=== PATIENT | female | born 1965 | race Caucasian/White ===

== ENCOUNTER 2017-02-15 16:36 | Emergency (ER) | payer BC, OTHER ==
[~2017-02-15] VITALS: Ht 167.6 cm; Wt 72.6 kg
[2017-02-15 16:36] VITALS: BP 134/83
[~2017-02-15 16:36] MED LIST: /LINE60TA OR; ACET650S OR; VANC; VICODIN 5/500 OR; [UNRECOGNIZED DRUG - OTHER] OR
[2017-02-15] MEDS ORDERED: EFFE75CA75 PO (16:45)
[2017-02-15] MEDS ORDERED: NORCO 5/325MG TABLET (BULK FOR ED) PO ONE (17:15)
[2017-02-15] MEDS ORDERED: KETOROLAC 60 MG/2 ML VIAL (J1885) IM ONE (17:15)
[2017-02-15] MEDS ORDERED: GABAPENTIN 300 MG CAP PO ONE (17:15)
[2017-02-15] MEDS ORDERED: NEUR300C PO (17:51)
[2017-02-15] MEDS ORDERED: OXYC1TAB23 PO (17:51)
== END 2017-02-15 17:57 | disposition home or self-care (01) ==
LOC: M ED 17:38
DX: M50.10 Cervical disc disorder with radiculopathy, unspecified cervical region (principal); F17.210 Nicotine dependence, cigarettes, uncomplicated; Z79.899 Other long term (current) drug therapy; F32.9 Major depressive disorder, single episode, unspecified
CPT/HCPCS: 96372; 99281; J1885

== ENCOUNTER → 2017-08-15 | Outpatient (REF) | payer OTHER ==
[~2017-08-15] MED LIST changes: +EFFE75CA75 PO; +NEUR300C PO; +OXYC1TAB23 PO
[2017-08-18 00:08] LABS: Lyme Disease IgG/IgM Antibodie <0.91 ISR (0.00-0.90); Lyme Disease IgM Ab Quantitati <0.80 index (0.00-0.79)
== END ==
LOC: M LAB REF 16:33
PROVIDERS: ATTEND Nurse Practitioner Family
DX: M79.1 Myalgia (principal)

== ENCOUNTER 2017-11-24 17:47 | Emergency (ER) | payer OTHER ==
[2017-11-24] MEDS: KETOROLAC 30 MG/ML VIAL (J1885) IV (18:48)
[2017-11-24] MEDS: ONDANSETRON 4MG/2ML VIAL (J2405) IV (18:48)
[2017-11-24] MEDS: NS 1,000 ML IV (18:48)
[2017-11-24 18:49] LABS: KETONE, URINE AUTO RFX NEGATIVE (NEGATIVE); LEUKOCYTE ESTERASE UR AUTO RFX NEGATIVE (NEGATIVE); NITRITE, URINE AUTO RFX NEGATIVE (NEGATIVE); RBC, URINE AUTO RFX 2 /HPF (0-3); SPECIFIC GRAVITY UR AUTO RFX 1.019 (1.002-1.035); SQUAM EPITHELIAL CELL UR AURFX 0 /HPF (0-6); WBC, URINE AUTO RFX 1 /HPF (0-3)
[2017-11-24 19:04] LABS: BASO # 0.1 10^3/uL (0.0-0.2); BASO % 1.1 % (0.0-1.0); EOS # 0.2 10^3/uL (0.0-0.50); EOS % 2.8 % (0.0-3.0); HEMATOCRIT 43.1 % (36.0-47.0); HEMOGLOBIN 14.3 g/dl (12.0-16.0); IMMATURE GRANULOCYTE % 0.3 % (0-0); LYMPH # 2.7 10^3/uL (1.5-4.5); LYMPH % 35.5 % (24.0-44.0); MEAN CORPUSCULAR HEMOGLOBIN 30.2 pg (27.0-33.0); MEAN CORPUSCULAR HGB CONC 33.2 g/dl (32.0-36.5); MEAN CORPUSCULAR VOLUME 90.9 fl (80.0-96.0); MONO # 0.5 10^3/uL (0.0-0.8); MONO % 6.1 % (0.0-5.0); NEUTROPHILS # 4.1 10^3/uL (1.8-7.7); NEUTROPHILS % 54.2 % (36.0-66.0); PLATELET COUNT, AUTOMATED 288 10^3/uL (150-450); RED BLOOD COUNT 4.74 10^6/uL (4.00-5.40); RED CELL DISTRIBUTION WIDTH 12.9 % (11.5-14.5); WHITE BLOOD COUNT 7.5 10^3/uL (4.0-10.0)
[2017-11-24] MEDS: MORPHINE 4 MG/ML 1ML SYRINGE IV ×2 (19:13→20:37)
[2017-11-24 19:25] LABS: ALBUMIN 4.2 GM/DL (3.2-5.2); ALBUMIN/GLOBULIN RATIO 1.24 (1.00-1.93); ALKALINE PHOSPHATASE 90 U/L (45-117); ALT/SGPT 20 U/L (12-78); AMYLASE 117 U/L (25-115); ANION GAP 6 MEQ/L (8-16); AST/SGOT 10 U/L (7-37); BILIRUBIN,DIRECT < 0.1 MG/DL (0.0-0.2); BILIRUBIN,TOTAL 0.2 MG/DL (0.2-1.0); BLOOD UREA NITROGEN 24 MG/DL (7-18); CALCIUM LEVEL 8.9 MG/DL (8.5-10.1); CARBON DIOXIDE LEVEL 28 MEQ/L (21-32); CHLORIDE LEVEL 107 MEQ/L (98-107); CREATININE FOR GFR 0.65 MG/DL (0.55-1.02); GLOMERULAR FILTRATION RATE > 60.0 (>51); GLUCOSE, FASTING 93 MG/DL (70-105); LIPASE 181 U/L (73-393); POTASSIUM SERUM 3.9 MEQ/L (3.5-5.1); SODIUM LEVEL 141 MEQ/L (136-145); TOTAL PROTEIN 7.6 GM/DL (6.4-8.2)
[2017-11-24] MEDS ORDERED: ISOVUE-370 76% 100ML VIAL (Q9967) As Ordered (19:32)
[2017-11-24] MEDS: BISACODYL 10 MG SUPP PR (20:53)
[2017-11-24] MEDS: MAGNESIUM CITRATE 300 ML BTL PO (20:53)
== END 2017-11-24 22:19 | disposition home or self-care (01) ==
LOC: M ED 17:47
DX: K59.00 Constipation, unspecified (principal); E27.9 Disorder of adrenal gland, unspecified; F17.200 Nicotine dependence, unspecified, uncomplicated; F32.9 Major depressive disorder, single episode, unspecified; Z79.899 Other long term (current) drug therapy
CPT/HCPCS: J2405

== ENCOUNTER → 2018-10-12 | Outpatient (CLI) | payer OTHER | LOC: M WUC 13:53 | DX: M51.36 Other intervertebral disc degeneration, lumbar region (principal); M25.78 Osteophyte, vertebrae; M41.86 Other forms of scoliosis, lumbar region; M54.31 Sciatica, right side | CPT/HCPCS: 72110 ==

== ENCOUNTER 2018-11-02 16:07 | Emergency (ER) | payer OTHER ==
[~2018-11-02] VITALS: Ht 167.6 cm; Wt 72.7 kg
[~2018-11-02 16:07] MED LIST changes: +COLA100C5 PO; +DULC10SU2 PR; +EFFE75CA2 PO; -EFFE75CA75 PO; +MIRA3350 PO
--- NOTE | 2018-11-02 16:44 | REP ---
Clinical: Acute chest pain . Comparison: 06/20/2016 . Findings: The mediastinum and cardiac silhouette are stable and within normal limits for portable technique. The lung fabian are clear without acute consolidation, effusion, or pneumothorax. Skeletal structures are intact. Impression: No acute cardiopulmonary process appreciated. Electronically Signed by Kraig Young MD 11/02/2018 04:36 P
[2018-11-02] MEDS ORDERED: ONDANSETRON 4MG/2ML VIAL (J2405) IV ONE (16:45)
[2018-11-02] MEDS ORDERED: MORPHINE 2 MG/ML 1ML SYRINGE (J2270) IV PRN (16:45)
[2018-11-02] MEDS ORDERED: ASPIRIN 81 MG CHEW TABLET PO ONE (16:45)
[2018-11-02 16:54] LABS: BASO # 0.1 10^3/uL (0.0-0.2); BASO % 0.8 % (0.0-1.0); EOS # 0.2 10^3/uL (0.0-0.50); EOS % 2.2 % (0.0-3.0); HEMATOCRIT 43.5 % (36.0-47.0); HEMOGLOBIN 14.4 g/dl (12.0-15.5); LYMPH # 2.3 10^3/uL (1.5-4.5); LYMPH % 30.3 % (24.0-44.0); MEAN CORPUSCULAR HEMOGLOBIN 30.8 pg (27.0-33.0); MEAN CORPUSCULAR HGB CONC 33.1 g/dl (32.0-36.5); MEAN CORPUSCULAR VOLUME 92.9 fl (80.0-96.0); MONO # 0.4 10^3/uL (0.0-0.8); MONO % 5.1 % (0.0-5.0); NEUTROPHILS # 4.7 10^3/uL (1.8-7.7); NEUTROPHILS % 61.3 % (36.0-66.0); PLATELET COUNT, AUTOMATED 252 10^3/uL (150-450); RED BLOOD COUNT 4.68 10^6/uL (4.00-5.40); WHITE BLOOD COUNT 7.6 10^3/uL (4.0-10.0)
[2018-11-02 17:06] LABS: INR 0.91; PROTHROMBIN TIME 12.4 SECONDS (12.1-14.4)
[2018-11-02 17:07] LABS: PARTIAL THROMBOPLASTIN TIME 25.9 SECONDS (25.4-37.6)
[2018-11-02 17:32] LABS: ALT/SGPT 22 U/L (12-78); BILIRUBIN,DIRECT 0.2 MG/DL (0.0-0.2); BILIRUBIN,TOTAL 0.4 MG/DL (0.2-1.0); BLOOD UREA NITROGEN 13 MG/DL (7-18); CALCIUM LEVEL 9.2 MG/DL (8.5-10.1); CARBON DIOXIDE LEVEL 27 MEQ/L (21-32); CHLORIDE LEVEL 106 MEQ/L (98-107); CK-MB VALUE MASS < 1.0 NG/ML (<3.6); CPK CREATINE PHOSPHOKINASE 38 U/L (26-192); FREE T4 1.26 NG/DL (0.76-1.46); GLOMERULAR FILTRATION RATE > 60.0 (>51); GLUCOSE, FASTING 96 MG/DL (70-100); LIPASE 122 U/L (73-393); MB/CK RELATIVE INDEX 2.63 (< OR =4); POTASSIUM SERUM 4.1 MEQ/L (3.5-5.1); SODIUM LEVEL 142 MEQ/L (136-145); TOTAL PROTEIN 7.2 GM/DL (6.4-8.2); TROPONIN I < 0.02 NG/ML (< 0.10)
[2018-11-02] MEDS ORDERED: ISOVUE-370 76% 100ML VIAL (Q9967) As Ordered ONE (17:45)
--- NOTE | 2018-11-02 18:44 | REP ---
Clinical: Acute left-sided chest pain. Technique: Axial contrast enhanced images from the thoracic inlet to the upper abdomen using 100 ml Isovue 370 intravenous contrast material with coronal and sagittal re-formations. Comparison: 06/20/2016 Findings: Satisfactory enhancement of the pulmonary vasculature is achieved and no filling defects are identified to suggest pulmonary embolus. Thoracic aorta is normal caliber without aneurysm or dissection. Heart and pericardium are normal. Bilateral lung fabian are well aerated and clear without acute pulmonary parenchymal consolidation or atelectasis. Minimal biapical scarring and 4 mm noncalcified right apical nodule remain stable compared to 2016. No acute significant nodule or mass lesion. No pleural effusion/reaction. No pneumothorax. No adenopathy. Limited upper abdomen demonstrates stable 3 cm complex left adrenal adenoma. Impression: No evidence for pulmonary embolus. No acute pleuroparenchymal or mediastinal process. Stable 4 mm right apical nodule unchanged compared to 2016. Stable 3 cm complex left adrenal adenoma. Electronically Signed by Kraig Young MD 11/02/2018 06:36 P
[2018-11-02 18:51] LABS: INFLUENZA A AMPLIFICATION NEGATIVE (NEGATIVE); INFLUENZA B AMPLIFICATION NEGATIVE (NEGATIVE)
[2018-11-02 18:54] LABS: CK-MB VALUE MASS < 1.0 NG/ML (<3.6); CPK CREATINE PHOSPHOKINASE 34 U/L (26-192); MB/CK RELATIVE INDEX 2.94 (< OR =4); TROPONIN I < 0.02 NG/ML (< 0.10)
[2018-11-02 19:24] VITALS: BP 100/58
--- NOTE | 2018-11-02 20:19 | ECGEPIP ---
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
--- NOTE | 2018-11-02 20:22 | ECGEPIP ---
Stationary ECG Study [facility] - ED Test Date: 2018-11-02 Pat Name: SUHAS PADILLA Department: Room: - Gender: F Publishing Director: : 1965 Requested By: Syed Hines Order Number: [id number] Reading MD: Syed Hines Measurements Intervals [place] Rate: 65 P: 72 PA: 174 QRS: 87 QRSD: 89 T: 65 QT: 384 QTc: 401 Interpretive Statements SINUS RHYTHM WITH SINUS ARRHYTHMIA NONSPECIFIC ST T WAVE CHANGES POSSIBLE LAE CW 11/02/[address] T WAVE CHANGES Electronically Signed On 11-02-2018 20:22:20 EST by Syed Hines
== END 2018-11-02 19:39 | disposition home or self-care (01) ==
LOC: M ED 16:07
DX: R07.89 Other chest pain (principal); R91.1 Solitary pulmonary nodule; D35.02 Benign neoplasm of left adrenal gland; F32.9 Major depressive disorder, single episode, unspecified; Z72.0 Tobacco use; Z79.899 Other long term (current) drug therapy
CPT/HCPCS: 71045; 71275; 80048; 80076; 82550; 82553; 83605; 83690; 84439; 84443; 84484; 85025; 85610; 85730; 87040; 87502; 93005; 93041; 94760; 96374; 96375; 99285; J2270; J2405; Q9967

== ENCOUNTER → 2019-03-16 | Outpatient (REF) | payer BC ==
[~2019-03-16] MED LIST changes: -/LINE60TA OR; +ZYVO100T OR
== END ==
LOC: M LAB REF 10:04
PROVIDERS: ATTEND Physician Assistant
DX: R50.9 Fever, unspecified (principal); R05 Cough

== ENCOUNTER → 2020-06-14 | Emergency (ER) | payer BC | END | disposition home or self-care (01) | LOC: M ED 14:45 | DX: R59.1 Generalized enlarged lymph nodes (principal); R68.84 Jaw pain; Z79.899 Other long term (current) drug therapy ==

== ENCOUNTER → 2020-07-30 | Outpatient (CLI) | payer BC ==
--- NOTE | 2020-08-11 11:19 | REP ---
CHEST X-RAY: TWO-VIEWS HISTORY: Acute bronchitis. Wheezing. COMPARISON CHEST X-RAY: 11/02/2018. FINDINGS: Frontal and lateral views of the chest show clear well-inflated lungs and sharp pleural angles. No infiltrate is seen. Heart is not enlarged. Pulmonary vasculature is not increased. The patient is status post ventral discectomy and fusion plating. No other bony abnormality. IMPRESSION: No active disease. MTDD
== END ==
LOC: M WUC 13:53
PROVIDERS: ATTEND Physician Assistant
DX: J20.9 Acute bronchitis, unspecified (principal); R06.2 Wheezing; Z20.828 Contact with and (suspected) exposure to other viral communicable diseases

== ENCOUNTER 2020-10-12 15:27 | Emergency (ER) | payer BC ==
[~2020-10-12] VITALS: Ht 170.2 cm; Wt 76.0 kg
[2020-10-12] MEDS ORDERED: GI COCKTAIL 50ML BTL(HYOSCYAMINE/MAALOX/LIDOCAINE VISCOUS)(1:3:1) PO ONE (16:30)
[2020-10-12 16:42] LABS: BASO # 0.1 10^3/uL (0.0-0.2); BASO % 0.9 % (0.0-1.0); EOS # 0.2 10^3/uL (0.0-0.5); EOS % 3.3 % (0.0-3.0); HEMATOCRIT 42.5 % (36.0-47.0); HEMOGLOBIN 13.5 g/dl (12.0-15.5); LYMPH # 2.2 10^3/uL (1.5-5.0); LYMPH % 34.1 % (24.0-44.0); MEAN CORPUSCULAR HEMOGLOBIN 29.7 pg (27.0-33.0); MEAN CORPUSCULAR HGB CONC 31.8 g/dl (32.0-36.5); MEAN CORPUSCULAR VOLUME 93.6 fl (80.0-96.0); MONO # 0.5 10^3/uL (0.0-0.8); MONO % 7.3 % (0.0-5.0); NEUTROPHILS # 3.6 10^3/uL (1.5-8.5); NEUTROPHILS % 54.2 % (36.0-66.0); PLATELET COUNT, AUTOMATED 269 10^3/uL (150-450); RED BLOOD COUNT 4.54 10^6/uL (4.00-5.40); WHITE BLOOD COUNT 6.6 10^3/uL (4.0-10.0)
[2020-10-12 16:51] LABS: INR 0.92; PARTIAL THROMBOPLASTIN TIME 30.7 SECONDS (24.2-38.5); PROTHROMBIN TIME 12.5 SECONDS (12.5-14.3)
[2020-10-12 16:54] LABS: D-DIMER QUANT 351.18 ng/ml (<500)
[2020-10-12] MEDS ORDERED: ASPIRIN 325 MG TAB PO ONE (17:00)
[2020-10-12 17:11] LABS: ALBUMIN 3.4 GM/DL (3.2-5.2); ALT/SGPT 17 U/L (12-78); BILIRUBIN,DIRECT < 0.1 MG/DL (0.0-0.2); BILIRUBIN,TOTAL 0.1 MG/DL (0.2-1.0); BLOOD UREA NITROGEN 18 MG/DL (7-18); CALCIUM LEVEL 8.8 MG/DL (8.5-10.1); CARBON DIOXIDE LEVEL 25 MEQ/L (21-32); CHLORIDE LEVEL 113 MEQ/L (98-107); CK-MB VALUE MASS 1.1 NG/ML (<3.6); CPK CREATINE PHOSPHOKINASE 40 U/L (26-192); CREATININE FOR GFR 0.75 MG/DL (0.55-1.30); FREE T4 1.12 NG/DL (0.76-1.46); GLOMERULAR FILTRATION RATE > 60.0 (>51); GLUCOSE, FASTING 89 MG/DL (70-100); MB/CK RELATIVE INDEX 2.75 (< OR =4); NT-PRO BNP 68 PG/ML (<125); SODIUM LEVEL 141 MEQ/L (136-145); TOTAL PROTEIN 6.2 GM/DL (6.4-8.2); TROPONIN I < 0.02 NG/ML (< 0.10)
--- NOTE | 2020-10-12 17:11 | REP ---
INDICATION: CHEST PAIN. COMPARISON: July 30, 2020.. TECHNIQUE: Sitting AP portable radiograph. FINDINGS: Patient is status post lower cervical discectomy and fusion plating. Monitoring electrodes are noted. The lungs are well inflated and clear. The pleural angles are sharp. Heart size is normal. Pulmonary vasculature is not increased. No acute bony abnormality is seen. IMPRESSION: No active cardiopulmonary disease seen. <Electronically signed by Justo Hood > 10/12/20 [id number]
--- NOTE | 2020-10-12 17:12 | ECGEPIP ---
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
[2020-10-12 17:49] LABS: ERYTHROCYTE SEDIMENTATION RATE 22 mm/hr (0-30)
[2020-10-12] MEDS ORDERED: NORCO, ANEXSIA 5/325MG TABLET (HYDROcodone/ACETAMINOPHEN) PO ONE (19:00)
[2020-10-12] MEDS ORDERED: KETOROLAC 30 MG/ML 1ML VIAL IV ONE (19:00)
[2020-10-12] MEDS ORDERED: ACETAMINOPHEN TAB 650MG DOSE (2X325MG) PO ONE (19:45)
--- NOTE | 2020-10-12 20:33 | REPVR ---
PROCEDURE INFORMATION: Exam: CT Chest Without Contrast; Diagnostic Exam date and time: 10/12/2020 7:54 PM Age: 55 years old Clinical indication: Chest pain; Type not specified TECHNIQUE: Imaging protocol: Diagnostic computed tomography of the chest without contrast. 3D rendering (Not supervised by radiologist): MIP and/or 3D reconstructed images were created by the technologist. Radiation optimization: All CT scans at this facility use at least one of these dose optimization techniques: automated exposure control; mA and/or kV adjustment per patient size (includes targeted exams where dose is matched to clinical indication); or iterative reconstruction. COMPARISON: CT ANGIO CHEST 11/02/2018 6:16 PM FINDINGS: Lungs: 4 mm ground-glass opacification in the right upper lobe. Pleural space: Unremarkable. No pneumothorax. No pleural effusion. Heart: Unremarkable. No cardiomegaly. No pericardial effusion. Aorta: Unremarkable. No aortic aneurysm. Lymph nodes: Unremarkable. No enlarged lymph nodes. Gallbladder and bile ducts: Cholecystectomy clips. Adrenals: 2.8 cm nodule in the left adrenal gland. Bones/joints: Unremarkable. No acute fracture. Soft tissues: Unremarkable. IMPRESSION: No acute abnormality. Indeterminate nodule in the left adrenal gland measuring 2.8 cm. Right upper lobe ground-glass nodule measuring 4 mm.No routine follow-up is indicated. (Reference: Liorhokarlos) References: Liorhokarlos H, et al. Guidelines for Management of Incidental Pulmonary Nodules Detected on CT Images: From the Fleischner Society 2017. Radiology. 2017;284(1):228-243. COMMENTS: Consistent with the [employer]'s Incidental Findings Committee white paper (J Am Marcelo Radiol 2017): For any incidental adrenal lesion greater than 1 cm but less than 4 cm classified in this report as benign, likely benign, or containing fat (including classification as an adenoma or myelolipoma), no follow-up imaging is recommended per consensus recommendations based on imaging criteria. Further lab evaluation could be pursued if warranted based on clinical findings. Electronically signed by: Avi Alonso On 10/12/2020 20:33:56 PM
[2020-10-12 21:13] LABS: CK-MB VALUE MASS < 1.0 NG/ML (<3.6); CPK CREATINE PHOSPHOKINASE 35 U/L (26-192); MB/CK RELATIVE INDEX 2.86 (< OR =4); TROPONIN I < 0.02 NG/ML (< 0.10)
[2020-10-12 21:15] VITALS: BP 142/82
--- NOTE | 2020-10-13 11:58 | ED PDOC ---
Post-Departure Follow-Up ct chest faxed to [facility] for ySed De La Torre MD Oct 13, 2020 11:58
--- NOTE | 2020-10-15 07:43 | ECGEPIP ---
[facility] - ED Test Date: 2020-10-12 Pat Name: SUHAS PADILLA Department: Room: - Gender: Female Drug Counselor: rhona : 1965 Requested By: SWAPNIL Christianson Order Number: [id number] Reading MD: Angelina Sánchez Measurements Intervals [place] Rate: 55 P: 66 [place]: 161 QRS: 85 QRSD: 98 T: 70 QT: 417 QTc: 400 Interpretive Statements SINUS BRADYCARDIA DECREASED RATE 10/12/20 Electronically Signed on 10-15-2020 7:43:36 EST by Angelina Sánchez
== END 2020-10-12 21:41 | disposition home or self-care (01) ==
LOC: M ED 15:27
DX: R07.9 Chest pain, unspecified (principal); R91.8 Other nonspecific abnormal finding of lung field; E27.9 Disorder of adrenal gland, unspecified; R00.1 Bradycardia, unspecified; F33.9 Major depressive disorder, recurrent, unspecified; F17.200 Nicotine dependence, unspecified, uncomplicated; Z79.899 Other long term (current) drug therapy
CPT/HCPCS: 71045; 71250; 80048; 80076; 82550; 82553; 83880; 84439; 84443; 84484; 85025; 85379; 85610; 85652; 85730; 86140; 93005; 93041; 94760; 96374; 99285; J1885

== ENCOUNTER 2020-12-05 15:03 | Emergency (ER) | payer BC ==
[~2020-12-05] VITALS: Ht 170.2 cm; Wt 74.5 kg
[2020-12-05 16:24] LABS: BASO # 0.1 10^3/uL (0.0-0.2); BASO % 0.6 % (0.0-1.0); EOS # 0.3 10^3/uL (0.0-0.5); HEMATOCRIT 48.2 % (36.0-47.0); HEMOGLOBIN 15.7 g/dl (12.0-15.5); LYMPH # 1.6 10^3/uL (1.5-5.0); LYMPH % 16.5 % (24.0-44.0); MEAN CORPUSCULAR HEMOGLOBIN 30.3 pg (27.0-33.0); MEAN CORPUSCULAR HGB CONC 32.6 g/dl (32.0-36.5); MEAN CORPUSCULAR VOLUME 93.1 fl (80.0-96.0); MONO # 0.5 10^3/uL (0.0-0.8); MONO % 5.5 % (0.0-5.0); PLATELET COUNT, AUTOMATED 324 10^3/uL (150-450); RED BLOOD COUNT 5.18 10^6/uL (4.00-5.40); WHITE BLOOD COUNT 9.4 10^3/uL (4.0-10.0)
[2020-12-05 16:59] LABS: ALBUMIN 3.7 GM/DL (3.2-5.2); ALT/SGPT 53 U/L (12-78); BILIRUBIN,DIRECT 0.1 MG/DL (0.0-0.2); BILIRUBIN,TOTAL 0.3 MG/DL (0.2-1.0); BLOOD UREA NITROGEN 13 MG/DL (7-18); CALCIUM LEVEL 9.5 MG/DL (8.5-10.1); CARBON DIOXIDE LEVEL 28 MEQ/L (21-32); CHLORIDE LEVEL 107 MEQ/L (98-107); CREATININE FOR GFR 0.57 MG/DL (0.55-1.30); GLOMERULAR FILTRATION RATE > 60.0 (>51); GLUCOSE, FASTING 90 MG/DL (70-100); LIPASE 119 U/L (73-393); POTASSIUM SERUM 4.1 MEQ/L (3.5-5.1); SODIUM LEVEL 141 MEQ/L (136-145); TOTAL PROTEIN 7.1 GM/DL (6.4-8.2)
[2020-12-05 18:40] VITALS: BP 135/79
== END 2020-12-05 18:42 | disposition home or self-care (01) ==
LOC: M ED 15:03
DX: R11.0 Nausea (principal); R19.7 Diarrhea, unspecified; F33.9 Major depressive disorder, recurrent, unspecified; F17.200 Nicotine dependence, unspecified, uncomplicated
CPT/HCPCS: 36415; 80048; 80076; 81001; 83690; 85025; 93041; 99284; U0003

== ENCOUNTER → 2021-06-03 | Outpatient (CLI) | payer BC ==
--- NOTE | 2021-06-03 16:33 | REP ---
INDICATION: ABN FINDING OF LUNG FIELD. COMPARISON: Comparison chest CT studies are reviewed from October 12, 2020 and November 02, 2018.. TECHNIQUE: Helical scanning is acquired. 3 mm axial images are generated. Coronal and sagittal MPR and coronal MIP images are generated. FINDINGS: Digital preliminary senior electronics design engineer radiograph demonstrates a surgical fusion plate in the cervical spine. Clips are noted in the right upper quadrant. there is a stable 4 mm noncalcified nodular density posteriorly pleural based in the right upper lobe on page 32 of 116 in series 201 of today's study. This is unchanged from the 2018 study. There are calcified granulomatous nodules in the right lower lobe on page 58 and in the right middle lobe on page 65. No new pulmonary parenchymal nodule is appreciated. No mass is seen. There is some linear fibrosis anteriorly and medially in the right middle lobe on today's CT study. This was not apparent previously but appears post inflammatory. No pleural or pericardial effusion is seen. No hilar or mediastinal mass or adenopathy is observed. There is some vascular calcification noted. In the upper abdomen, the previously noted 3 cm low-density left adrenal adenoma is again seen unchanged from the 2018 study. This contains a small eccentric calcification as before. IMPRESSION: Stable 4 mm right upper lobe pleural based nodule. Old granulomatous changes. Stable 3 cm left adrenal adenoma. No acute disease. <Electronically signed by Justo Hood > 06/03/21 [id number]
== END ==
LOC: M RAD 13:51
PROVIDERS: ATTEND Nurse Practitioner Adult Health
DX: R91.8 Other nonspecific abnormal finding of lung field (principal)

== ENCOUNTER → 2021-08-23 | Outpatient (CLI) | payer BC ==
--- NOTE | 2021-08-23 09:07 | REP ---
INDICATION: PAIN COMPARISON: 10/12/2018 TECHNIQUE: AP, lateral, bilateral oblique, and coned-down views of the lumbar spine. FINDINGS: Moderate multilevel degenerative changes include endplate sclerosis with marginal spurring and hypertrophic facet changes. Very minimal disc space narrowing at L5-S1 suggested. No acute fracture/compression injury or subluxation. No spondylolysis or spondylolisthesis. IMPRESSION: Moderate multilevel degenerative spondylosis similar to prior examination. <Electronically signed by Kraig Young > 08/23/21 [id number]
== END ==
LOC: M WUC 08:08
PROVIDERS: ATTEND Physician Assistant
DX: M54.50 Low back pain, unspecified (principal)

== ENCOUNTER → 2021-09-06 | Outpatient (REF) | payer BC | LOC: M LAB REF 11:18 | PROVIDERS: ATTEND Physician Assistant Medical | DX: R50.9 Fever, unspecified (principal); M79.10 Myalgia, unspecified site ==

== ENCOUNTER 2021-09-14 13:41 | Outpatient (CLI) | payer BC ==
[~2021-09-14] VITALS: Ht 170.2 cm; Wt 73.0 kg
[~2021-09-14 13:41] MED LIST changes: +ALBUTEROL 90 MCG/ACT 8GM HFA INHALER INH PRN; +ALBUTEROL SULFATE 2.5 MG/0.5 ML INH NEB SOLN INH PRN; +EPINEPHrine INJ 1 MG/ML 1ML AMP IM PRN; +NS 1,000 ML IV SCH; +diphenhydrAMINE 50MG/ML VIAL (J1200) IV PRN; +methylPREDNISolone 125MG 2ML VIAL IV PRN
[2021-09-14] MEDS ORDERED: CASIRIVIMAB (REGN10933) 600 MG, IMDEVIMAB (REGN10987) 600 MG in NS 250 ML IV ONE (14:10)
[2021-09-14] MEDS ORDERED: ACETAMINOPHEN TAB 650MG DOSE (2X325MG) PO ONE (14:10)
[2021-09-14] MEDS ORDERED: diphenhydrAMINE 25MG CAP PO ONE (14:10)
[2021-09-14 14:38] VITALS: BP 134/64
[2021-09-14 15:08] VITALS: BP 137/67
[2021-09-14 15:38] VITALS: BP 146/67
[2021-09-14 16:38] VITALS: BP 133/63
== END 2021-09-14 16:38 | disposition home or self-care (01) ==
LOC: M OPCLI4PR 13:41
PROVIDERS: ATTEND Registered Nurse
DX: U07.1 COVID-19 (principal)

== ENCOUNTER → 2021-12-20 | Outpatient (CLI) | payer BC ==
[~2021-12-20] MED LIST changes: -ALBUTEROL 90 MCG/ACT 8GM HFA INHALER INH PRN; -ALBUTEROL SULFATE 2.5 MG/0.5 ML INH NEB SOLN INH PRN; -EPINEPHrine INJ 1 MG/ML 1ML AMP IM PRN; -NS 1,000 ML IV SCH; -diphenhydrAMINE 50MG/ML VIAL (J1200) IV PRN; -methylPREDNISolone 125MG 2ML VIAL IV PRN
== END ==
LOC: M SOG 09:03
PROVIDERS: ATTEND Orthopaedic Surgery Sports Medicine
DX: M25.512 Pain in left shoulder (principal)

== ENCOUNTER → 2022-01-06 | Outpatient (CLI) | payer BC | LOC: M PLAIMG 09:00 | PROVIDERS: ATTEND Orthopaedic Surgery Sports Medicine | DX: M75.112 Incomplete rotator cuff tear or rupture of left shoulder, not specified as traumatic (principal); S46.002A Unspecified injury of muscle(s) and tendon(s) of the rotator cuff of left shoulder, initial encounter; X58.XXXA Exposure to other specified factors, initial encounter; Y92.9 Unspecified place or not applicable; Y93.9 Activity, unspecified; Y99.9 Unspecified external cause status ==

== ENCOUNTER → 2022-02-22 | Outpatient (CLI) | payer BC ==
[~2022-02-22] MED LIST changes: +ACET-683 PO; +ALBU83IN INH; +FLUT1BLS8 IH; +IBUP200C25 PO; +VENTAER INH
== END ==
LOC: M LABSMTC 09:57
PROVIDERS: ATTEND Anesthesiology
DX: Z11.52 Encounter for screening for COVID-19 (principal); Z20.822 Contact with and (suspected) exposure to COVID-19

== ENCOUNTER 2022-02-27 06:03 | Observation (INO) | payer BC ==
[~2022-02-27] VITALS: Ht 167.6 cm; Wt 76.2 kg
[~2022-02-27 06:03] MED LIST changes: +LR 1,000 ML IV ONE; +ceFAZolin SOD 2 GM in IV 1 EA IV ONE
[2022-02-27] MEDS ORDERED: MIDAZOLAM INJ 2MG/2ML VIAL (J2250 PER 1MG) IV PRN (07:01)
[2022-02-27] MEDS ORDERED: fentaNYL 100 MCG/2 ML INJECTION IV PRN ×2 (07:01→10:55)
[2022-02-27] MEDS ORDERED: TRANEXAMIC ACID 100 MG/ML 10ML VIAL As Ordered ONE ×2 (07:10→10:15)
[2022-02-27] MEDS ORDERED: VANCOMYCIN 1000MG/20ML VIAL As Ordered ONE (07:11)
[2022-02-27] MEDS ORDERED: LIDOCAINE W/EPINEPHRINE 1% 20ML VIAL As Ordered ONE (07:11)
[2022-02-27] MEDS ORDERED: EPINEPHrine INJ 1 MG/ML 1ML AMP XX ONE (07:20)
[2022-02-27] MEDS ORDERED: ROPIvacaine 0.5% 30ML INJECTION (J2795 PER 1MG) XX ONE (07:20)
[2022-02-27] MEDS ORDERED: dexameTHASONE 10MG/1ML VIAL PRES.FREE (J1100 PER 1MG) XX ONE (07:20)
[2022-02-27] MEDS ORDERED: PHENYLephrine 500MCG 5ML (100MCG/ML) SYRINGE As Ordered ONE ×3 (08:10→09:00)
[2022-02-27] MEDS ORDERED: MIDAZOLAM INJ 2MG/2ML VIAL (J2250 PER 1MG) As Ordered ONE (08:10)
[2022-02-27] MEDS ORDERED: SUGAMMADEX SODIUM 500 MG/5 ML VIAL (BRIDION) As Ordered ONE (08:10)
[2022-02-27] MEDS ORDERED: ROCURONIUM BROMIDE 50 MG/5 ML VIAL As Ordered ONE ×3 (08:10→09:30)
[2022-02-27] MEDS ORDERED: METOCLOPRAMIDE INJ 10MG/2ML VIAL (J2765 PER 1) As Ordered ONE (08:10)
[2022-02-27] MEDS ORDERED: ACETAMINOPHEN 1000MG 100ML IV BTL (OFIRMEV) (J0131 PER 10MG) As Ordered ONE (08:10)
[2022-02-27] MEDS ORDERED: LIDOCAINE 2% 100MG/5ML SDV (FOR ANES.) As Ordered ONE (08:10)
[2022-02-27] MEDS ORDERED: propofoL 200 MG/20 ML VIAL As Ordered ONE (08:10)
[2022-02-27] MEDS ORDERED: fentaNYL 250 MCG/5 ML INJECTION As Ordered ONE (08:10)
[2022-02-27] MEDS ORDERED: KETOROLAC 60MG 2ML VIAL As Ordered ONE (08:10)
[2022-02-27] MEDS ORDERED: dexameTHASONE 4 MG/ML 1ML VIAL (J1100 PER 1MG) As Ordered ONE (08:10)
[2022-02-27] MEDS ORDERED: ONDANSETRON 4MG/2ML VIAL As Ordered ONE (08:10)
[2022-02-27] MEDS ORDERED: ePHEDrine SULFATE 25 MG/5 ML(5MG/ML) SYRINGE As Ordered ONE ×2 (08:28→09:00)
[2022-02-27] MEDS ORDERED: PHENYLEPHRINE 10MG/ML 1ML VIAL (J2370 PER 1) As Ordered ONE (09:22)
[2022-02-27] MEDS ORDERED: DESFLURANE 240 ML INHALANT As Ordered ONE (10:04)
[2022-02-27] MEDS ORDERED: ACETAMINOPHEN TAB 650MG DOSE (2X325MG) PO PRN ×2 (10:55→13:10)
[2022-02-27] MEDS ORDERED: diphenhydrAMINE 50MG/ML VIAL (J1200) IV PRN (10:55)
[2022-02-27] MEDS ORDERED: LR 1,000 ML IV SCH (10:55)
[2022-02-27] MEDS ORDERED: SENNA 8.6 MG TAB (SENOKOT) PO PRN (10:55)
[2022-02-27] MEDS ORDERED: HYDROmorphone 2 MG TAB PO PRN (10:55)
[2022-02-27] MEDS ORDERED: zolPIDEM TARTRATE 5 MG TAB PO PRN (10:55)
[2022-02-27] MEDS ORDERED: ONDANSETRON 4MG/2ML VIAL IV PRN ×2 (10:55)
[2022-02-27] MEDS ORDERED: PILL CUTTER 1 EACH XX PRN (11:15)
[2022-02-27 12:30] VITALS: BP 124/78
[2022-02-27 13:00] VITALS: BP 130/86
[2022-02-27] MEDS ORDERED: ALBUTEROL 90 MCG/ACT 8GM HFA INHALER INH PRN (13:00)
[2022-02-27] MEDS ORDERED: MOM 30ML SUSPENSION UDC PO PRN (13:10)
[2022-02-27] MEDS: oxyCODONE 5MG TAB PO PRN (13:43)
[2022-02-27 14:00] VITALS: BP 121/77
[2022-02-27 15:00] VITALS: BP 110/64
[2022-02-27] MEDS: VENLAFAXINE **XR** 75MG CAPSULE PO SCH (15:04)
[2022-02-27] MEDS: ceFAZolin SOD 1 GM in D5W MINI-BAG PLUS 50 ML IV SCH (15:05)
[2022-02-27 16:00] VITALS: BP 102/64
[2022-02-27] MEDS: MORPHINE 4 MG/ML 1ML VIAL/SYRINGE IV PRN ×2 (16:16→20:41)
[2022-02-27 17:00] VITALS: BP 119/74
[2022-02-27] MEDS ORDERED: IBUPROFEN 600MG TAB PO PRN (17:00)
[2022-02-27] MEDS: DOCUSATE SODIUM 100MG CAPSULE PO SCH (20:41)
[2022-02-28] MEDS: ceFAZolin SOD 1 GM in D5W MINI-BAG PLUS 50 ML IV SCH ×2 (00:03→08:49)
[2022-02-28] MEDS: oxyCODONE 5MG TAB PO PRN ×2 (00:04→05:27)
[2022-02-28 00:22] VITALS: BP 105/68
[2022-02-28] MEDS: MORPHINE 4 MG/ML 1ML VIAL/SYRINGE IV PRN ×2 (02:20→08:10)
[2022-02-28 05:40] VITALS: BP 102/68
[2022-02-28 07:04] LABS: HEMATOCRIT 33.8 % (36.0-47.0); HEMOGLOBIN 11.1 g/dl (12.0-15.5); MEAN CORPUSCULAR HEMOGLOBIN 30.9 pg (27.0-33.0); MEAN CORPUSCULAR HGB CONC 32.8 g/dl (32.0-36.5); MEAN CORPUSCULAR VOLUME 94.2 fl (80.0-96.0); PLATELET COUNT, AUTOMATED 242 10^3/uL (150-450); RED BLOOD COUNT 3.59 10^6/uL (4.00-5.40)
[2022-02-28 07:25] LABS: BLOOD UREA NITROGEN 13 MG/DL (7-18); CALCIUM LEVEL 8.5 MG/DL (8.5-10.1); CARBON DIOXIDE LEVEL 27 MEQ/L (21-32); CHLORIDE LEVEL 109 MEQ/L (98-107); CREATININE FOR GFR 0.44 MG/DL (0.55-1.30); GLOMERULAR FILTRATION RATE > 60.0 (>51); GLUCOSE, FASTING 107 MG/DL (70-100); POTASSIUM SERUM 3.9 MEQ/L (3.5-5.1); SODIUM LEVEL 140 MEQ/L (136-145)
[2022-02-28 08:00] VITALS: BP 111/70
[2022-02-28] MEDS: DOCUSATE SODIUM 100MG CAPSULE PO SCH (08:49)
[2022-02-28] MEDS: VENLAFAXINE **XR** 75MG CAPSULE PO SCH (08:50)
[2022-02-28] MEDS ORDERED: OXYC1TAB23 PO (12:10)
[2022-02-28] MEDS ORDERED: SENN18TA PO (12:46)
[2022-02-28] MEDS ORDERED: COLA100C5 PO (12:46)
== END 2022-02-28 14:40 | disposition home or self-care (01) ==
LOC: M OR 06:03 → INTOOBSV 06:03 → M MS5PR 12:25
PROVIDERS: ADMIT Orthopaedic Surgery Hand Surgery; ATTEND Orthopaedic Surgery Hand Surgery
DX: M19.012 Primary osteoarthritis, left shoulder (principal); M25.512 Pain in left shoulder; J44.9 Chronic obstructive pulmonary disease, unspecified; F32.9 Major depressive disorder, single episode, unspecified; K21.9 Gastro-esophageal reflux disease without esophagitis; L40.9 Psoriasis, unspecified; Z86.14 Personal history of Methicillin resistant Staphylococcus aureus infection; F17.218 Nicotine dependence, cigarettes, with other nicotine-induced disorders; Z79.899 Other long term (current) drug therapy
CPT/HCPCS: 23472; 36415; 64415; 73020; 80048; 83735; 85027; 96365; 96366; 96375; 96376; 97161; 97165; 97535; C1713; C1776; J0131; J0690; J1100; J1885; J2250; J2270; J2370; J2405; J2765; J3010; J3370

== ENCOUNTER → 2022-03-13 | Outpatient (CLI) | payer BC ==
[~2022-03-13] MED LIST changes: -LR 1,000 ML IV ONE; +SENN18TA PO; -ceFAZolin SOD 2 GM in IV 1 EA IV ONE
== END ==
LOC: M SOG 13:46
PROVIDERS: ATTEND Orthopaedic Surgery Hand Surgery
DX: M12.812 Other specific arthropathies, not elsewhere classified, left shoulder (principal)

== ENCOUNTER 2022-04-07 10:54 | Outpatient (RCR) | payer BC ==
[~2022-04-07 10:54] MED LIST changes: +ALBU2.5V10 INH; -ALBU83IN INH
== END 2022-04-11 ==
LOC: M PT 10:54
PROVIDERS: ATTEND Orthopaedic Surgery Hand Surgery
DX: M12.812 Other specific arthropathies, not elsewhere classified, left shoulder (principal)

== ENCOUNTER 2022-04-13 13:38 | Outpatient (RCR) | payer BC | END 2022-05-11 | LOC: M PT 13:38 | PROVIDERS: ATTEND Orthopaedic Surgery Hand Surgery | DX: M12.812 Other specific arthropathies, not elsewhere classified, left shoulder (principal) ==

== ENCOUNTER → 2022-04-27 | Outpatient (CLI) | payer BC | LOC: M SOG 08:00 | PROVIDERS: ATTEND Orthopaedic Surgery Hand Surgery | DX: Z47.1 Aftercare following joint replacement surgery (principal) ==

== ENCOUNTER → 2022-06-01 | Outpatient (CLI) | payer BC ==
[2022-06-01 10:01] LABS: BASO # 0.1 10^3/uL (0.0-0.2); BASO % 1.2 % (0.0-1.0); EOS # 0.2 10^3/uL (0.0-0.5); EOS % 2.7 % (0.0-3.0); HEMATOCRIT 47.1 % (36.0-47.0); HEMOGLOBIN 15.4 g/dl (12.0-15.5); LYMPH % 26.6 % (24.0-44.0); MEAN CORPUSCULAR HEMOGLOBIN 30.9 pg (27.0-33.0); MEAN CORPUSCULAR HGB CONC 32.7 g/dl (32.0-36.5); MEAN CORPUSCULAR VOLUME 94.6 fl (80.0-96.0); MONO # 0.4 10^3/uL (0.0-0.8); MONO % 5.8 % (2.0-8.0); NEUTROPHILS # 4.9 10^3/uL (1.5-8.5); NEUTROPHILS % 63.4 % (36.0-66.0); PLATELET COUNT, AUTOMATED 264 10^3/uL (150-450); RED BLOOD COUNT 4.98 10^6/uL (4.00-5.40); WHITE BLOOD COUNT 7.6 10^3/uL (4.0-10.0)
[2022-06-01 10:29] LABS: ERYTHROCYTE SEDIMENTATION RATE 2 mm/hr (0-30)
== END ==
LOC: M LAB 09:32
PROVIDERS: ATTEND Orthopaedic Surgery Hand Surgery
DX: Z47.1 Aftercare following joint replacement surgery (principal)

== ENCOUNTER → 2022-06-21 | Outpatient (CLI) | payer BC | LOC: M RAD 13:29 | PROVIDERS: ATTEND Nurse Practitioner Adult Health | DX: F17.218 Nicotine dependence, cigarettes, with other nicotine-induced disorders (principal); R91.1 Solitary pulmonary nodule ==

== ENCOUNTER → 2022-09-26 | Outpatient (CLI) | payer BC | LOC: M SOG 15:29 | PROVIDERS: ATTEND Orthopaedic Surgery Hand Surgery | DX: M25.512 Pain in left shoulder (principal); M25.522 Pain in left elbow; Z96.612 Presence of left artificial shoulder joint ==

== ENCOUNTER → 2023-01-08 | Outpatient (CLI) | payer BC | LOC: M PLAIMG 09:31 | PROVIDERS: ATTEND Nurse Practitioner Adult Health | DX: R06.02 Shortness of breath (principal) ==

== ENCOUNTER 2023-01-25 13:01 | Emergency (ER) | payer BC ==
[~2023-01-25] VITALS: Ht 167.6 cm; Wt 77.8 kg
[2023-01-25] MEDS ORDERED: PRED20TA (13:25)
[2023-01-25] MEDS ORDERED: CEFU1TAB22 (13:25)
[2023-01-25] MEDS ORDERED: ANOR1AER (13:25)
[2023-01-25 14:49] LABS: BASO # 0.1 10^3/uL (0.0-0.2); BASO % 0.7 % (0.0-1.0); EOS # 0.2 10^3/uL (0.0-0.5); EOS % 2.6 % (0.0-3.0); HEMATOCRIT 50.3 % (36.0-47.0); HEMOGLOBIN 16.2 g/dl (12.0-15.5); LYMPH # 2.7 10^3/uL (1.5-5.0); LYMPH % 33.9 % (24.0-44.0); MEAN CORPUSCULAR HEMOGLOBIN 30.3 pg (27.0-33.0); MEAN CORPUSCULAR HGB CONC 32.2 g/dl (32.0-36.5); MEAN CORPUSCULAR VOLUME 94.2 fl (80.0-96.0); MONO # 0.5 10^3/uL (0.0-0.8); MONO % 5.7 % (2.0-8.0); NEUTROPHILS # 4.6 10^3/uL (1.5-8.5); NEUTROPHILS % 56.7 % (36.0-66.0); PLATELET COUNT, AUTOMATED 337 10^3/uL (150-450); RED BLOOD COUNT 5.34 10^6/uL (4.00-5.40); WHITE BLOOD COUNT 8.1 10^3/uL (4.0-10.0)
[2023-01-25] MEDS ORDERED: ALBUTEROL SULFATE 2.5MG/0.5ML INH NEB SOLN NEB ONE ×2 (15:40→18:30)
[2023-01-25] MEDS ORDERED: methylPREDNISolone 125MG 2ML VIAL IV ONE (16:05)
[2023-01-25] MEDS ORDERED: NS 1,000 ML IV ONE (16:05)
[2023-01-25] MEDS ORDERED: ACETAMINOPHEN TAB 650MG DOSE (2X325MG) PO ONE (17:00)
[2023-01-25 17:30] LABS: CK-MB VALUE MASS < 1.0 NG/ML (<3.6)
[2023-01-25 17:40] LABS: CPK CREATINE PHOSPHOKINASE 31 U/L (34-145); MB/CK RELATIVE INDEX 3.22 (< OR =4)
[2023-01-25] MEDS ORDERED: IPRATROPIUM 0.5MG/ALBUTEROL 2.5MG INH SOL UD 3ML (DUONEB) NEB ONE (18:30)
[2023-01-25] MEDS ORDERED: PRED20TA PO (19:51)
[2023-01-25] MEDS ORDERED: IPRA0.00 INH (19:51)
[2023-01-25 20:12] VITALS: BP 136/69
== END 2023-01-25 20:11 | disposition home or self-care (01) ==
LOC: M ED 13:01
DX: J44.1 Chronic obstructive pulmonary disease with (acute) exacerbation (principal); F32.A Depression, unspecified; F17.200 Nicotine dependence, unspecified, uncomplicated; Z79.52 Long term (current) use of systemic steroids; Z79.899 Other long term (current) drug therapy
CPT/HCPCS: 71046; 80047; 81001; 82550; 82553; 83880; 84484; 85025; 93005; 94640; 96361; 96374; 99284; J2930

== ENCOUNTER 2023-05-25 14:28 | Inpatient (IN) | payer BC ==
[~2023-05-25] VITALS: Ht 167.6 cm; Wt 77.8 kg
[~2023-05-25 14:28] MED LIST changes: +ANOR1AER; +CEFU1TAB22; +IPRA0.00 INH; +PRED20TA; +PRED20TA PO; +SENN-111 PO; -SENN18TA PO
[2023-05-25 15:29] LABS: BASO # 0.1 10^3/uL (0.0-0.2); BASO % 1.1 % (0.0-1.0); EOS # 0.1 10^3/uL (0.0-0.5); EOS % 1.1 % (0.0-3.0); HEMATOCRIT 46.4 % (36.0-47.0); HEMOGLOBIN 15.6 g/dl (12.0-15.5); LYMPH # 1.8 10^3/uL (1.5-5.0); MEAN CORPUSCULAR HEMOGLOBIN 30.9 pg (27.0-33.0); MEAN CORPUSCULAR HGB CONC 33.6 g/dl (32.0-36.5); MEAN CORPUSCULAR VOLUME 91.9 fl (80.0-96.0); MONO # 0.6 10^3/uL (0.0-0.8); MONO % 6.1 % (2.0-8.0); NEUTROPHILS # 6.9 10^3/uL (1.5-8.5); NEUTROPHILS % 72.3 % (36.0-66.0); PLATELET COUNT, AUTOMATED 299 10^3/uL (150-450); RED BLOOD COUNT 5.05 10^6/uL (4.00-5.40); WHITE BLOOD COUNT 9.5 10^3/uL (4.0-10.0)
[2023-05-25 15:44] LABS: INR 0.93; PROTHROMBIN TIME 12.7 SECONDS (12.5-14.5)
[2023-05-25 15:45] LABS: PARTIAL THROMBOPLASTIN TIME 29.2 SECONDS (24.8-34.2)
[2023-05-25] MEDS ORDERED: ISOVUE-370 76% 100ML VIAL As Ordered ONE (15:45)
[2023-05-25 15:55] LABS: CPK CREATINE PHOSPHOKINASE 41 U/L (34-145)
[2023-05-25 15:56] LABS: BLOOD UREA NITROGEN 18 MG/DL (9-23); CALCIUM LEVEL 10.2 MG/DL (8.3-10.6); CARBON DIOXIDE LEVEL 24 MMOL/L (20-31); CHLORIDE LEVEL 111 MMOL/L (98-107); CK-MB VALUE MASS < 1.0 NG/ML (<3.6); CREATININE FOR GFR 0.54 MG/DL (0.55-1.30); GLOMERULAR FILTRATION RATE > 60.0 (>45); GLUCOSE, FASTING 99 MG/DL (74-106); MB/CK RELATIVE INDEX 2.43 (< OR =4); POTASSIUM SERUM 3.9 MMOL/L (3.5-5.1); SODIUM LEVEL 143 MMOL/L (136-145)
[2023-05-25] MEDS ORDERED: NS 1,000 ML IV SCH (16:05)
[2023-05-25] MEDS ORDERED: METOCLOPRAMIDE INJ 10MG/2ML VIAL IV ONE (16:05)
[2023-05-25 16:45] LABS: RSV AMPLIFICATION NEGATIVE (NEGATIVE)
[2023-05-25] MEDS ORDERED: ASPIRIN 81MG CHEW TABLET PO ONE (17:45)
[2023-05-25] MEDS ORDERED: MED REC IN PROGRESS XX SCH (17:55)
[2023-05-25] MEDS ORDERED: HOME MED LIST COMPLETE! XX SCH (18:00)
[2023-05-25] MEDS ORDERED: ALBUTEROL 90 MCG/ACT 8GM HFA INHALER INH PRN (18:10)
[2023-05-25] MEDS ORDERED: ALBUTEROL SULFATE 2.5MG/0.5ML INH NEB SOLN INH PRN (18:10)
[2023-05-25] MEDS ORDERED: IPRATROPIUM 0.5MG/ALBUTEROL 2.5MG INH SOL UD 3ML (DUONEB) NEB PRN (18:10)
[2023-05-25 18:19] LABS: C REACTIVE PROTEIN QUANTITATIV < 0.40 MG/DL (<1.0)
[2023-05-25 18:43] LABS: ERYTHROCYTE SEDIMENTATION RATE 7 mm/hr (0-30)
[2023-05-25] MEDS ORDERED: NICOTINE 14 MG/24 HR TRANSDERMAL TD PRN (18:50)
[2023-05-25] MEDS ORDERED: ATORVASTATIN 20 MG TAB PO SCH (21:00)
[2023-05-25] MEDS ORDERED: ACETAMINOPHEN 500 MG TAB PO SCH (21:00)
[2023-05-25] MEDS: NS 1,000 ML IV SCH (22:34)
[2023-05-26] MEDS: NS 1,000 ML IV SCH (05:14)
[2023-05-26 06:45] LABS: BASO # 0.1 10^3/uL (0.0-0.2); BASO % 1.3 % (0.0-1.0); EOS # 0.3 10^3/uL (0.0-0.5); HEMOGLOBIN 13.8 g/dl (12.0-15.5); LYMPH # 2.5 10^3/uL (1.5-5.0); LYMPH % 39.6 % (24.0-44.0); MEAN CORPUSCULAR HEMOGLOBIN 31.2 pg (27.0-33.0); MEAN CORPUSCULAR HGB CONC 32.9 g/dl (32.0-36.5); MEAN CORPUSCULAR VOLUME 94.8 fl (80.0-96.0); MONO # 0.4 10^3/uL (0.0-0.8); MONO % 7.1 % (2.0-8.0); NEUTROPHILS % 47.7 % (36.0-66.0); PLATELET COUNT, AUTOMATED 253 10^3/uL (150-450); RED BLOOD COUNT 4.43 10^6/uL (4.00-5.40); WHITE BLOOD COUNT 6.2 10^3/uL (4.0-10.0)
[2023-05-26 07:18] LABS: ALBUMIN 3.3 G/DL (3.2-5.2); ALKALINE PHOSPHATASE 90 U/L (46-116); ALT/SGPT 11 U/L (7.0-40); AST/SGOT < 8 U/L (<34); BILIRUBIN,TOTAL 0.5 MG/DL (0.3-1.2); BLOOD UREA NITROGEN 16 MG/DL (9-23); CALCIUM LEVEL 8.7 MG/DL (8.3-10.6); CARBON DIOXIDE LEVEL 26 MMOL/L (20-31); CHLORIDE LEVEL 111 MMOL/L (98-107); CHOLESTEROL LEVEL 163 MG/DL (<200); CHOLESTEROL RISK RATIO 3.46 (<5); CREATININE FOR GFR 0.51 MG/DL (0.55-1.30); GLOMERULAR FILTRATION RATE > 60.0 (>45); GLUCOSE, FASTING 93 MG/DL (74-106); MAGNESIUM LEVEL 2.1 MG/DL (1.8-2.4); POTASSIUM SERUM 4.2 MMOL/L (3.5-5.1); SODIUM LEVEL 145 MMOL/L (136-145); TOTAL PROTEIN 5.6 G/DL (5.7-8.2); TRIGLYCERIDES LEVEL 110 MG/DL (<150)
[2023-05-26] MEDS ORDERED: VENLAFAXINE **XR** 75MG CAPSULE PO SCH (09:00)
[2023-05-26] MEDS ORDERED: ENOXAPARIN 40MG/0.4ML SYRINGE (J1650 PER 10MG) SC SCH (09:00)
[2023-05-26 16:16] VITALS: BP 121/60; TEMP 98.1; O2SAT 97
== END 2023-05-26 16:22 | disposition home or self-care (01) | DRG 204 ==
LOC: M ED 14:28 → M ED INP 17:44
PROVIDERS: ADMIT Internal Medicine; ATTEND Internal Medicine
DX: I95.1 Orthostatic hypotension (principal); F32.A Depression, unspecified; E86.0 Dehydration; H54.7 Unspecified visual loss; J44.9 Chronic obstructive pulmonary disease, unspecified; F17.200 Nicotine dependence, unspecified, uncomplicated; K21.9 Gastro-esophageal reflux disease without esophagitis; L40.8 Other psoriasis; Z89.421 Acquired absence of other right toe(s); Z96.612 Presence of left artificial shoulder joint; Z79.899 Other long term (current) drug therapy

== ENCOUNTER → 2023-07-13 | Outpatient (CLI) | payer BC | LOC: M RAD 16:11 | PROVIDERS: ATTEND Nurse Practitioner Adult Health | DX: F17.218 Nicotine dependence, cigarettes, with other nicotine-induced disorders (principal) ==

== ENCOUNTER → 2023-09-11 | Outpatient (REF) | LOC: M LAB 15:33 | PROVIDERS: ATTEND Nurse Practitioner Adult Health | DX: Z02.89 Encounter for other administrative examinations (principal) ==

== ENCOUNTER 2023-11-27 09:11 | Emergency (ER) | payer BC, OTHER ==
[~2023-11-27] VITALS: Ht 167.6 cm; Wt 79.0 kg
[2023-11-27 10:21] LABS: RSV AMPLIFICATION NEGATIVE (NEGATIVE)
[2023-11-27] MEDS ORDERED: ACETAMINOPHEN TAB 650MG DOSE (2X325MG) PO ONE (12:00)
[2023-11-27] MEDS ORDERED: KETOROLAC 30 MG/ML 1ML VIAL IV ONE (12:00)
[2023-11-27] MEDS ORDERED: NS 1,000 ML IV ONE (12:00)
[2023-11-27] MEDS ORDERED: ONDANSETRON 4MG 2ML VIAL As Ordered ONE (12:25)
[2023-11-27] MEDS ORDERED: ONDANSETRON 4MG 2ML VIAL IV ONE (12:30)
[2023-11-27 12:34] LABS: BASO % 0.5 % (0.0-1.0); EOS # 0.2 10^3/uL (0.0-0.5); EOS % 2.7 % (0.0-3.0); HEMOGLOBIN 16.4 g/dl (12.0-15.5); LYMPH # 1.8 10^3/uL (1.5-5.0); LYMPH % 32.4 % (24.0-44.0); MEAN CORPUSCULAR HEMOGLOBIN 31.1 pg (27.0-33.0); MEAN CORPUSCULAR HGB CONC 33.5 g/dl (32.0-36.5); MONO # 0.3 10^3/uL (0.0-0.8); MONO % 5.3 % (2.0-8.0); NEUTROPHILS # 3.2 10^3/uL (1.5-8.5); NEUTROPHILS % 58.7 % (36.0-66.0); PLATELET COUNT, AUTOMATED 266 10^3/uL (150-450); RED BLOOD COUNT 5.27 10^6/uL (4.00-5.40); WHITE BLOOD COUNT 5.5 10^3/uL (4.0-10.0)
[2023-11-27 13:06] LABS: CPK CREATINE PHOSPHOKINASE 27 U/L (34-145)
[2023-11-27 13:07] LABS: ALKALINE PHOSPHATASE 94 U/L (46-116); ALT/SGPT 28 U/L (7.0-40); AST/SGOT 16 U/L (<34); BILIRUBIN,DIRECT 0.1 MG/DL (<0.4); BILIRUBIN,TOTAL 0.4 MG/DL (0.3-1.2); BLOOD UREA NITROGEN 11 MG/DL (9-23); CALCIUM LEVEL 9.3 MG/DL (8.3-10.6); CARBON DIOXIDE LEVEL 29 MMOL/L (20-31); CHLORIDE LEVEL 109 MMOL/L (98-107); CREATININE FOR GFR 0.48 MG/DL (0.55-1.30); GLOMERULAR FILTRATION RATE > 60.0 (>45); GLUCOSE, FASTING 97 MG/DL (74-106); POTASSIUM SERUM 4.2 MMOL/L (3.5-5.1); SODIUM LEVEL 142 MMOL/L (136-145); TOTAL PROTEIN 7.1 G/DL (5.7-8.2)
[2023-11-27 13:18] VITALS: O2SAT 97
[2023-11-27 14:00] VITALS: BP 142/92; TEMP 98.2; O2SAT 98
== END 2023-11-27 14:25 | disposition home or self-care (01) ==
LOC: M ED 09:11
DX: U07.1 COVID-19 (principal); J44.9 Chronic obstructive pulmonary disease, unspecified; F17.200 Nicotine dependence, unspecified, uncomplicated; Z79.52 Long term (current) use of systemic steroids; Z79.899 Other long term (current) drug therapy
CPT/HCPCS: 71045; 80048; 80076; 82550; 85025; 87631; 96361; 96374; 96375; 99284; J1885; J2405

== ENCOUNTER 2024-01-24 07:26 | Day surgery (SDC) | payer OTHER ==
[~2024-01-24] VITALS: Ht 167.6 cm; Wt 77.8 kg
[~2024-01-24 07:26] MED LIST changes: -ANOR1AER; +ANOR1AER INH; +MIDAZOLAM INJ 2MG/2ML VIAL As Ordered ONE; +PHENYLEPHRINE 10% OPHTH SOL 5ML OD PRN; +fentaNYL 100 MCG/2 ML INJECTION As Ordered ONE
[2024-01-24] MEDS: OFLOXACIN 0.3 % (OCUFLOX) OPTH SOL 5ML OD ONE (08:17)
[2024-01-24] MEDS: PHENYLEPHRINE 2.5% OPHTH SOL 2ML OD SCH (08:17)
[2024-01-24] MEDS: TROPICAMIDE 1% OPHTH SOLN 15ML OD SCH (08:18)
[2024-01-24] MEDS: LIDOCAINE 3.5 % 1ML OPHTH TOPICAL GEL OU ONE (08:18)
[2024-01-24] MEDS: ATROPINE SULFATE 1% OPHTH SOLN 2ML BTL OD SCH (08:18)
[2024-01-24] MEDS: BSS IRRIG/VANCO(10MG)/TOBRA(5MG)/EPINEPH(1:1000-0.5CC)500ML BAG-ORONLY As Ordered ONE (08:54)
[2024-01-24] MEDS: LIDOCAINE 1% SDV 5ML VIAL As Ordered ONE (08:54)
[2024-01-24] MEDS: CEFUROXIME 1MG/0.1ML INTRACAMERAL INJ As Ordered ONE (08:57)
[2024-01-24 09:03] VITALS: BP 138/70; TEMP 97.5; O2SAT 98
== END 2024-01-24 09:24 | disposition home or self-care (01) ==
LOC: M SDC 07:26
PROVIDERS: ATTEND Ophthalmology
DX: H25.11 Age-related nuclear cataract, right eye (principal); J44.9 Chronic obstructive pulmonary disease, unspecified; Z79.899 Other long term (current) drug therapy; Z79.51 Long term (current) use of inhaled steroids; F17.210 Nicotine dependence, cigarettes, uncomplicated
CPT/HCPCS: 66984; J0697; J2250; J3010; V2632

== ENCOUNTER 2024-01-31 07:47 | Day surgery (SDC) | payer OTHER ==
[~2024-01-31] VITALS: Ht 170.2 cm; Wt 78.3 kg
[~2024-01-31 07:47] MED LIST changes: +BSS with VANC/TOB/EPI for EYE CASES IR ONE; +CYCLOPENTOLATE 1% OPHTH SOLN 2ML BTL OS SCH; -PHENYLEPHRINE 10% OPHTH SOL 5ML OD PRN; +PHENYLEPHRINE 10% OPHTH SOL 5ML OS PRN
[2024-01-31] MEDS: LIDOCAINE 3.5 % 1ML OPHTH TOPICAL GEL OU ONE (09:07)
[2024-01-31] MEDS: OFLOXACIN 0.3 % (OCUFLOX) OPTH SOL 5ML OS ONE (09:07)
[2024-01-31] MEDS: PHENYLEPHRINE 2.5% OPHTH SOL 2ML OS SCH (09:07)
[2024-01-31] MEDS: ATROPINE SULFATE 1% OPHTH SOLN 2ML BTL OS SCH (09:07)
[2024-01-31] MEDS: TROPICAMIDE 1% OPHTH SOLN 15ML OS SCH (09:08)
[2024-01-31] MEDS: CEFUROXIME 1MG/0.1ML INTRACAMERAL INJ As Ordered ONE (09:51)
[2024-01-31] MEDS: LIDOCAINE 1% SDV 5ML VIAL As Ordered ONE (09:51)
[2024-01-31] MEDS: BSS IRRIG/VANCO(10MG)/TOBRA(5MG)/EPINEPH(1:1000-0.5CC)500ML BAG-ORONLY As Ordered ONE (09:52)
[2024-01-31 10:04] VITALS: BP 135/59; TEMP 96.8; O2SAT 99
== END 2024-01-31 10:25 | disposition home or self-care (01) ==
LOC: M SDC 07:47
PROVIDERS: ATTEND Ophthalmology
DX: H25.12 Age-related nuclear cataract, left eye (principal); J44.9 Chronic obstructive pulmonary disease, unspecified; Z79.899 Other long term (current) drug therapy; F17.210 Nicotine dependence, cigarettes, uncomplicated
CPT/HCPCS: 66984; J0697; J2250; J3010; V2632

== ENCOUNTER 2024-09-23 10:15 | Emergency (ER) | payer OTHER ==
[~2024-09-23] VITALS: Ht 170.2 cm; Wt 80.1 kg
[~2024-09-23 10:15] MED LIST changes: -BSS with VANC/TOB/EPI for EYE CASES IR ONE; -CYCLOPENTOLATE 1% OPHTH SOLN 2ML BTL OS SCH; -MIDAZOLAM INJ 2MG/2ML VIAL As Ordered ONE; -PHENYLEPHRINE 10% OPHTH SOL 5ML OS PRN; -SENN-111 PO; +SENN-165 PO; -fentaNYL 100 MCG/2 ML INJECTION As Ordered ONE
[2024-09-23 12:08] LABS: BASO # 0.1 10^3/uL (0.0-0.2); BASO % 0.9 % (0.0-1.0); EOS # 0.2 10^3/uL (0.0-0.5); EOS % 2.7 % (0.0-3.0); HEMATOCRIT 46.2 % (36.0-47.0); HEMOGLOBIN 14.9 g/dl (12.0-15.5); LYMPH # 2.3 10^3/uL (1.5-5.0); LYMPH % 32.4 % (24.0-44.0); MEAN CORPUSCULAR HEMOGLOBIN 31.2 pg (27.0-33.0); MEAN CORPUSCULAR HGB CONC 32.3 g/dl (32.0-36.5); MEAN CORPUSCULAR VOLUME 96.7 fl (80.0-96.0); MONO # 0.4 10^3/uL (0.0-0.8); NEUTROPHILS # 4.1 10^3/uL (1.5-8.5); NEUTROPHILS % 57.7 % (36.0-66.0); PLATELET COUNT, AUTOMATED 294 10^3/uL (150-450); RED BLOOD COUNT 4.78 10^6/uL (4.00-5.40)
[2024-09-23 12:34] LABS: LIPASE 31 U/L (12-53)
[2024-09-23 12:36] LABS: ALBUMIN 3.8 G/DL (3.2-5.2); ALKALINE PHOSPHATASE 83 U/L (35-104); ALT/SGPT 19 U/L (7.0-40); AST/SGOT < 8 U/L (<34); BILIRUBIN,DIRECT < 0.1 MG/DL (<0.4); BILIRUBIN,TOTAL 0.3 MG/DL (0.3-1.2); BLOOD UREA NITROGEN 17 MG/DL (9-23); CALCIUM LEVEL 10.3 MG/DL (8.3-10.6); CARBON DIOXIDE LEVEL 30 MMOL/L (20-31); CHLORIDE LEVEL 109 MMOL/L (98-107); CREATININE FOR GFR 0.51 MG/DL (0.55-1.30); GLOMERULAR FILTRATION RATE > 60.0 (>45); GLUCOSE, FASTING 101 MG/DL (74-106); SODIUM LEVEL 143 MMOL/L (136-145); TOTAL PROTEIN 7.1 G/DL (5.7-8.2)
[2024-09-23] MEDS: ONDANSETRON 4MG 2ML VIAL IV ONE (15:26)
[2024-09-23] MEDS: KETOROLAC 30 MG/ML 1ML VIAL IV ONE (15:26)
[2024-09-23] MEDS ORDERED: ISOVUE-370 76% 100ML VIAL As Ordered ONE (15:32)
[2024-09-23] MEDS ORDERED: ONDA-282 PO (16:50)
[2024-09-23 17:02] VITALS: BP 146/62; TEMP 98; O2SAT 96
== END 2024-09-23 17:08 | disposition home or self-care (01) ==
LOC: M ED 10:15
DX: R10.9 Unspecified abdominal pain (principal); K76.0 Fatty (change of) liver, not elsewhere classified; N28.1 Cyst of kidney, acquired; D35.00 Benign neoplasm of unspecified adrenal gland; J44.9 Chronic obstructive pulmonary disease, unspecified; F17.200 Nicotine dependence, unspecified, uncomplicated; Z79.52 Long term (current) use of systemic steroids; Z79.83 Long term (current) use of bisphosphonates; Z79.899 Other long term (current) drug therapy
CPT/HCPCS: 74177; 80048; 80076; 83605; 83690; 85025; 96374; 99283; J1885; J2405; Q9967

== ENCOUNTER 2024-12-08 08:41 | Inpatient (IN) | payer OTHER ==
[~2024-12-08] VITALS: Ht 167.6 cm; Wt 81.8 kg
[~2024-12-08 08:41] MED LIST changes: +ONDA-282 PO
[2024-12-08] MEDS: PERCOCET 5MG/325MG TAB PO ONE (10:38)
[2024-12-08 11:59] LABS: BASO # 0.1 10^3/uL (0.0-0.2); BASO % 1.2 % (0.0-1.0); EOS # 0.2 10^3/uL (0.0-0.5); HEMATOCRIT 45.1 % (36.0-47.0); HEMOGLOBIN 14.7 g/dl (12.0-15.5); LYMPH # 2.4 10^3/uL (1.5-5.0); LYMPH % 35.4 % (24.0-44.0); MEAN CORPUSCULAR HEMOGLOBIN 31.1 pg (27.0-33.0); MEAN CORPUSCULAR HGB CONC 32.6 g/dl (32.0-36.5); MEAN CORPUSCULAR VOLUME 95.6 fl (80.0-96.0); MONO # 0.4 10^3/uL (0.0-0.8); MONO % 5.3 % (2.0-8.0); NEUTROPHILS # 3.7 10^3/uL (1.5-8.5); NEUTROPHILS % 54.8 % (36.0-66.0); PLATELET COUNT, AUTOMATED 272 10^3/uL (150-450); RED BLOOD COUNT 4.72 10^6/uL (4.00-5.40); WHITE BLOOD COUNT 6.7 10^3/uL (4.0-10.0)
[2024-12-08] MEDS ORDERED: ISOVUE-370 76% 100ML VIAL As Ordered ONE (12:00)
[2024-12-08] MEDS: KETOROLAC 30 MG/ML 1ML VIAL IV ONE (12:45)
[2024-12-08] MEDS: ONDANSETRON 4MG 2ML VIAL IV ONE (16:11)
[2024-12-08] MEDS: MORPHINE 4 MG/ML 1ML VIAL IV ONE (16:11)
[2024-12-08] MEDS ORDERED: HOME MED LIST COMPLETE! XX SCH (16:15)
[2024-12-08] MEDS ORDERED: MOM 30ML SUSPENSION UDC PO PRN (16:20)
[2024-12-08] MEDS ORDERED: KETOROLAC 30 MG/ML 1ML VIAL IV PRN (16:20)
[2024-12-08 17:29] LABS: IMMUNOGLOBULIN A 125.8 MG/DL (40-350); IMMUNOGLOBULIN M 92.2 MG/DL (50-300)
[2024-12-08 17:31] LABS: C REACTIVE PROTEIN QUANTITATIV < 0.50 MG/DL (<1.0); CPK CREATINE PHOSPHOKINASE 40 U/L (34-145)
[2024-12-08 17:32] LABS: ALBUMIN 3.8 G/DL (3.2-5.2); ALKALINE PHOSPHATASE 78 U/L (35-104); ALT/SGPT 21 U/L (7.0-40); AST/SGOT 14 U/L (<34); BILIRUBIN,TOTAL 0.5 MG/DL (0.3-1.2); BLOOD UREA NITROGEN 16 MG/DL (9-23); CALCIUM LEVEL 9.1 MG/DL (8.3-10.6); CARBON DIOXIDE LEVEL 28 MMOL/L (20-31); CHLORIDE LEVEL 108 MMOL/L (98-107); CREATININE FOR GFR 0.49 MG/DL (0.55-1.30); GLOMERULAR FILTRATION RATE > 60.0 (>45); GLUCOSE, FASTING 96 MG/DL (74-106); POTASSIUM SERUM 4.4 MMOL/L (3.5-5.1); SODIUM LEVEL 144 MMOL/L (136-145); TOTAL PROTEIN 6.7 G/DL (5.7-8.2)
[2024-12-08 17:36] LABS: PROCALCITONIN <0.04 ng/ml
[2024-12-08] MEDS: GABAPENTIN 300 MG CAP PO SCH (17:47)
[2024-12-08] MEDS: ACETAMINOPHEN 500 MG TAB PO SCH (17:48)
[2024-12-08] MEDS: KETOROLAC 30 MG/ML 1ML VIAL IV SCH (17:48)
[2024-12-08] MEDS: ENOXAPARIN 40MG/0.4ML SYRINGE (J1650 PER 10MG) SC SCH (17:49)
[2024-12-08 18:05] LABS: HEMOGLOBIN A1c 5.8 % (4.0-6.0)
[2024-12-08 21:53] VITALS: BP 133/78; TEMP 97.7; O2SAT 94
[2024-12-08] MEDS: DOCUSATE SODIUM 100MG CAPSULE PO SCH (22:00)
[2024-12-08] MEDS: DICLOFENAC EPOLAMINE 1.3% PATCH TOP SCH (22:01)
[2024-12-08] MEDS: CAPSAICIN 0.025% CR 60 GM TOP SCH (22:13)
[2024-12-09 04:20] VITALS: BP 116/69; TEMP 97; O2SAT 94
[2024-12-09 06:45] LABS: HEMATOCRIT 41.6 % (36.0-47.0); HEMOGLOBIN 13.8 g/dl (12.0-15.5); MEAN CORPUSCULAR HEMOGLOBIN 31.4 pg (27.0-33.0); MEAN CORPUSCULAR HGB CONC 33.2 g/dl (32.0-36.5); MEAN CORPUSCULAR VOLUME 94.8 fl (80.0-96.0); PLATELET COUNT, AUTOMATED 247 10^3/uL (150-450); RED BLOOD COUNT 4.39 10^6/uL (4.00-5.40); WHITE BLOOD COUNT 6.1 10^3/uL (4.0-10.0)
[2024-12-09 07:17] LABS: BLOOD UREA NITROGEN 17 MG/DL (9-23); CALCIUM LEVEL 8.6 MG/DL (8.3-10.6); CARBON DIOXIDE LEVEL 28 MMOL/L (20-31); CHLORIDE LEVEL 106 MMOL/L (98-107); CREATININE FOR GFR 0.65 MG/DL (0.55-1.30); GLOMERULAR FILTRATION RATE > 60.0 (>45); GLUCOSE, FASTING 100 MG/DL (74-106); POTASSIUM SERUM 4.6 MMOL/L (3.5-5.1); SODIUM LEVEL 142 MMOL/L (136-145)
[2024-12-09] MEDS: TIOTROPIUM INHALER/CAPSULE (SPIRIVA) INH SCH (07:43)
[2024-12-09] MEDS: MORPHINE 4 MG/ML 1ML VIAL IV PRN (07:58)
[2024-12-09] MEDS: LIDOCAINE 5% (LIDODERM) PATCH TD SCH (08:08)
[2024-12-09] MEDS: VENLAFAXINE **XR** 75MG CAPSULE PO SCH (08:08)
[2024-12-09] MEDS: oxyCODONE 5MG TAB PO PRN (10:01)
[2024-12-09 12:00] VITALS: BP 121/73; TEMP 97.5; O2SAT 94
[2024-12-09 20:03] VITALS: BP 137/74; TEMP 97.9; O2SAT 96
[2024-12-10 04:00] VITALS: BP 136/74; TEMP 97.5; O2SAT 96
[2024-12-10] MEDS: ALBUTEROL 90 MCG/ACT 8GM HFA INHALER INH PRN (04:26)
[2024-12-10 12:00] VITALS: BP 131/71; TEMP 97.7; O2SAT 96
[2024-12-10] MEDS ORDERED: DICL20GE TP (13:54)
[2024-12-10] MEDS ORDERED: OXYC-517 PO (13:54)
[2024-12-10] MEDS ORDERED: GABA-1172 PO (13:54)
[2024-12-10] MEDS ORDERED: ACET-683 PO (13:54)
[2024-12-10] MEDS ORDERED: DICL20GE TOP (14:29)
== END 2024-12-10 14:59 | disposition home or self-care (01) | DRG 351 ==
LOC: M ED 08:41 → M ED INP 16:20 → EEVIPCON 16:20 → M MSPAV 21:47
PROVIDERS: ADMIT Student in an Organized Health Care Education/Training Program; ATTEND Student in an Organized Health Care Education/Training Program
DX: M25.511 Pain in right shoulder (principal); J44.9 Chronic obstructive pulmonary disease, unspecified; F17.210 Nicotine dependence, cigarettes, uncomplicated; K21.9 Gastro-esophageal reflux disease without esophagitis; F32.A Depression, unspecified; Z98.49 Cataract extraction status, unspecified eye; Z90.49 Acquired absence of other specified parts of digestive tract; Z90.79 Acquired absence of other genital organ(s); Z96.612 Presence of left artificial shoulder joint; Z89.411 Acquired absence of right great toe; Z79.899 Other long term (current) drug therapy; Z66 Do not resuscitate; L40.9 Psoriasis, unspecified

== ENCOUNTER → 2024-12-15 | Outpatient (CLI) | payer OTHER ==
[~2024-12-15] MED LIST changes: +DICL20GE TOP; +DICL20GE TP; +GABA-1172 PO; +OXYC-517 PO
== END ==
LOC: M RAD 09:25
PROVIDERS: ATTEND Nurse Practitioner Adult Health
DX: F17.218 Nicotine dependence, cigarettes, with other nicotine-induced disorders (principal); J43.9 Emphysema, unspecified

== ENCOUNTER → 2024-12-17 | Outpatient (REF) | payer OTHER ==
[2024-12-17 15:58] LABS: CK-MB VALUE MASS < 1.0 NG/ML (<3.6)
[2024-12-17 16:01] LABS: CPK CREATINE PHOSPHOKINASE < 15 U/L (34-145)
== END ==
LOC: M LAB REF 13:21
PROVIDERS: ATTEND Physician Assistant Medical
DX: R07.89 Other chest pain (principal)

== ENCOUNTER → 2024-12-22 | Outpatient (CLI) | payer OTHER | LOC: M SOG 11:25 | PROVIDERS: ATTEND Physician Assistant | DX: M25.511 Pain in right shoulder (principal) ==

== ENCOUNTER 2025-03-17 07:58 | Day surgery (SDC) | payer OTHER ==
[~2025-03-17] VITALS: Ht 167.6 cm; Wt 79.7 kg
[~2025-03-17 07:58] MED LIST changes: +IBUP-1022 PO
[2025-03-17] MEDS ORDERED: LR 1,000 ML IV SCH ×2 (08:40→14:05)
[2025-03-17] MEDS: IPRATROPIUM 0.5MG/ALBUTEROL 2.5MG INH SOL UD 3ML NEB ONE (09:30)
[2025-03-17] MEDS ORDERED: fentaNYL 100 MCG/2 ML INJECTION As Ordered ONE (09:37)
[2025-03-17] MEDS: ROPIvacaine 0.5% 30ML VIAL PN ONE (09:40)
[2025-03-17] MEDS: dexAMETHasone 10MG/1ML VIAL PRES.FREE PN ONE (09:40)
[2025-03-17] MEDS: LIDOCAINE 1% SDV 5ML VIAL PN ONE (09:40)
[2025-03-17] MEDS ORDERED: MIDAZOLAM INJ 2MG/2ML VIAL As Ordered ONE (09:41)
[2025-03-17] MEDS ORDERED: ACETAMINOPHEN 1000MG/100ML IV BAG As Ordered ONE (09:47)
[2025-03-17] MEDS ORDERED: dexmedeTOMIDine (4MCG/ML)200MCG/50ML BTL (PRECEDEX) As Ordered ONE (09:47)
[2025-03-17] MEDS: MIDAZOLAM INJ 2MG/2ML VIAL IV PRN (10:06)
[2025-03-17] MEDS ORDERED: SUGAMMADEX SODIUM 500 MG/5 ML VIAL (BRIDION) As Ordered ONE (10:06)
[2025-03-17] MEDS ORDERED: propofoL 200 MG/20 ML VIAL As Ordered ONE (10:06)
[2025-03-17] MEDS ORDERED: LIDOCAINE 2% 100MG/5ML SDV (FOR ANES.) As Ordered ONE (10:06)
[2025-03-17] MEDS: fentaNYL 100 MCG/2 ML INJECTION IV PRN (10:07)
[2025-03-17] MEDS ORDERED: KETOROLAC 30 MG/ML 1ML VIAL As Ordered ONE (10:07)
[2025-03-17] MEDS ORDERED: ONDANSETRON 4MG 2ML VIAL As Ordered ONE (10:07)
[2025-03-17] MEDS ORDERED: ROCURONIUM BROMIDE 50MG/5ML VIAL As Ordered ONE (10:10)
[2025-03-17] MEDS: VANCOMYCIN 1000MG/20ML VIAL As Ordered ONE (11:05)
[2025-03-17] MEDS: ceFAZolin SOD 2 GM IV ONCE IV ONE (12:00)
[2025-03-17] MEDS: TRANEXAMIC ACID 100 MG/ML 10ML VIAL As Ordered ONE (12:05)
[2025-03-17] MEDS: LIDOCAINE W/EPINEPHRINE 1% 20ML VIAL As Ordered ONE (12:30)
[2025-03-17] MEDS ORDERED: GLYCOPYRROLATE INJ 0.2 MG/ML 2 ML VIAL As Ordered ONE (12:40)
[2025-03-17] MEDS: EPINEPHrine 1MG/ML INJ 30ML MD-VIAL As Ordered ONE (13:50)
[2025-03-17] MEDS ORDERED: fentaNYL 100 MCG/2 ML INJECTION IV PRN (14:05)
[2025-03-17] MEDS ORDERED: HYDROMORPHONE HCL 0.5 MG/ 0.5 ML SYRINGE IV PRN (14:05)
[2025-03-17] MEDS ORDERED: HYDR2TAB2 PO ×2 (14:29→14:33)
[2025-03-17] MEDS ORDERED: SUZE50TA PO (14:29)
[2025-03-17] MEDS: ONDANSETRON 4MG 2ML VIAL IV PRN (14:48)
[2025-03-17] MEDS: oxyCODONE 5MG TAB PO PRN (15:04)
[2025-03-17 15:35] VITALS: BP 142/84; TEMP 98.1; O2SAT 95
== END 2025-03-17 16:09 | disposition home or self-care (01) ==
LOC: M SDC 07:58
PROVIDERS: ATTEND Neuromusculoskeletal Medicine, Sports Medicine
DX: M75.41 Impingement syndrome of right shoulder (principal); M75.101 Unspecified rotator cuff tear or rupture of right shoulder, not specified as traumatic; K21.9 Gastro-esophageal reflux disease without esophagitis; J44.9 Chronic obstructive pulmonary disease, unspecified; F41.9 Anxiety disorder, unspecified; F32.A Depression, unspecified; F17.210 Nicotine dependence, cigarettes, uncomplicated; Z79.51 Long term (current) use of inhaled steroids; Z79.899 Other long term (current) drug therapy
CPT/HCPCS: 23405; 29824; 29826; 29827; 64415; C1713; J0131; J0171; J0690; J1100; J1596; J1885; J2250; J2405; J2795; J3010

== ENCOUNTER → 2025-09-09 | Outpatient (REF) | payer OTHER ==
[~2025-09-09] MED LIST changes: +HYDR2TAB2 PO; -IBUP-1022 PO; +IBUP600T42 PO; +SUZE50TA PO
[2025-09-14 12:12] LABS: LYME TOTAL ANTIBODY CIA <= 0.90 Index (<=0.90)
[2025-09-14 20:12] LABS: BORRELIA SPECIES DNA NOT DETECTED (NOT DETECT)
== END ==
LOC: M LAB REF 17:29
PROVIDERS: ATTEND Physician Assistant Medical
DX: M25.511 Pain in right shoulder (principal); Z11.59 Encounter for screening for other viral diseases

== ENCOUNTER → 2025-09-11 | Outpatient (CLI) | payer OTHER | LOC: M WUC 13:35 | PROVIDERS: ATTEND Physician Assistant Medical | DX: M25.511 Pain in right shoulder (principal) ==

== ENCOUNTER → 2025-09-23 | Outpatient (CLI) | payer OTHER | LOC: M WUC 15:25 | PROVIDERS: ATTEND Physician Assistant Medical | DX: M54.2 Cervicalgia (principal); M25.511 Pain in right shoulder ==

== ENCOUNTER → 2025-10-02 | Outpatient (CLI) | payer OTHER | LOC: M WUC 09:03 | PROVIDERS: ATTEND Physician Assistant Medical | DX: R05.1 Acute cough (principal) ==